=== PATIENT | male | born 1950 | race Caucasian/White ===

== ENCOUNTER 2018-09-28 09:29 | Emergency (ER) | payer OTHER ==
--- NOTE | 2018-09-28 09:53 | EDPHY ---
H & P Time Seen by Provider: 09/28/18 09:43 HPI/ROS: Chief complaint. Cough and achiness; flu exposure HPI. Patient is a 68-year-old male presents emergency department with cough achiness and congestion that started this morning. His son was diagnosed with influenza yesterday. Patient has no fever, shortness of breath or chest pain. No abdominal pain. Diffuse achiness and myalgias. Dry nonproductive cough. Drainage from sinuses. Slight sore throat. ROS 10 systems were reviewed and negative with the exception of the elements mentioned in the history of present illness Past Medical/Surgical History: Hydrocele Social History: , nonsmoker, no alcohol Smoking Status: Former smoker Physical Exam: General Appearance: Alert pleasant well-developed male mild distress vital signs stable Eyes: Pupils equal and round no pallor or injection. ENT, pharynx slightly injected without exudate. Tympanic membranes are normal. Respiratory: There are no retractions, lungs are clear to auscultation. Cardiovascular: Regular rate and rhythm. Gastrointestinal: Abdomen is soft and nontender, no masses, bowel sounds normal. Neurological: Awake and alert, sensory and motor exams grossly normal. Skin: Warm and dry, no rashes. Musculoskeletal: Neck is supple nontender. Extremities symmetrical, full range of motion. Psychiatric: Patient is oriented X 3, there is no agitation. Constitutional: Initial Vital Signs Temperature (C) 37 C 09/28/18 09:36 Heart Rate 77 09/28/18 09:36 Respiratory Rate 16 09/28/18 09:36 Blood Pressure 146/109 H 09/28/18 09:36 O2 Sat (%) 94 09/28/18 09:36 O2 Delivery Mode Room Air Allergies/Adverse Reactions: No Known Allergies Allergy (Unverified 09/28/18 09:35) Home Medications: Medication Instructions Recorded Claritin 09/28/18 Lorazepam 09/28/18 Oseltamivir Phosphate [Tamiflu 75 75 mg PO BID #10 cap 09/28/18 mg (*)] Wellbutrin 100mg (*) 09/28/18 Zicam 09/28/18 Medical Decision Making - Diagnostics Imaging Results: Imaging Impressions Chest X-Ray 09/28/18 09:44 Impression: No acute abnormality. One-view chest x-ray shows no pneumonia ED Course/Re-evaluation: Patient remained stable. He and I discussed treatment plan including recommendation to begin Tamiflu. He expresses understanding and agreement Differential Diagnosis: Patient has influenza symptoms and has been exposed to his son was diagnosed yesterday with flu. The patient's symptoms started today. It is clearly in the window for treatment with Tamiflu. Departure - Departure Disposition: Home, Routine, Self-Care Clinical Impression: Influenza Condition: Good Instructions: Influenza (ED) Additional Instructions: Drink plenty of fluids and stay hydrated Tylenol and Advil for fever and achiness Tamiflu for 5 days Return for worsening symptoms Referrals: Compa Terrazas MD [Primary Care Provider] - 2-3 days, if not improved Prescriptions: Oseltamivir Phosphate [Tamiflu 75 mg (*)] 75 mg PO BID #10 cap
[2018-09-28 10:14] VITALS: BP 122/69
== END 2018-09-28 10:14 | disposition home or self-care (01) ==
DX: J11.1 Influenza due to unidentified influenza virus with other respiratory manifestations (principal)